=== PATIENT | female | born 1940 | race Caucasian/White ===

== ENCOUNTER 2020-08-04 22:26 | Emergency (ER) | payer OTHER ==
[~2020-08-04] VITALS: Ht 157.5 cm; Wt 88.5 kg
[2020-08-04 23:26] LABS: ABSOLUTE BASOPHILS 0.1 thou/uL (0.0-0.2); ABSOLUTE EOSINOPHILS 0.2 thou/uL (0.0-0.7); ABSOLUTE LYMPHOCYTES 4.4 thou/uL (0.8-5.3); ABSOLUTE MONOCYTES 0.8 thou/uL (0.0-1.2); ABSOLUTE NEUTROPHILS 4.2 thou/uL (1.6-8.1); EOSINOPHILS 1.8 %; HEMATOCRIT 37.4 % (37.0-47.0); HEMOGLOBIN 12.5 gm/dL (12.0-15.0); LYMPHOCYTES 45.9 %; MCH 30.2 pg (26.0-34.0); MCHC 33.5 g/dL (28.0-37.0); MPV 5.9 fl. (7.2-11.1); NUCLEATED RBCS 0 /100WBC; PLATELET COUNT* 286 thou/uL (150-400); POLYS 43.3 %; RBC 4.16 mil/uL (4.20-5.00); RDW-CV 13.8 % (10.5-14.5); WBC 9.6 thou/uL (4.0-11.0)
[2020-08-04 23:31] LABS: CALCIUM 8.3 mg/dL (8.5-10.1); CREATININE 1.3 mg/dL (0.6-1.3); POTASSIUM 3.2 mmol/L (3.5-5.1)
[2020-08-04 23:35] LABS: ALBUMIN 3.3 g/dL (3.4-5.0); TOTAL BILIRUBIN 0.4 mg/dL (<0.1-1.0)
[2020-08-04 23:37] LABS: PROTIME 10.5 Seconds (9.20-11.50)
[2020-08-05 01:27] VITALS: BP 152/77
--- NOTE | 2020-08-05 10:51 | EKG ---
[place] [address] ELECTROCARDIOGRAM REPORT Name: SAMMI COTTON Room: [facility]#: [id number] Admission: 08/04/20 Attend Phys: Discharge: 08/05/20 Date of : 44 Date of Service: 08/04/202242 Report #: [id number] THIS REPORT FOR: //name// 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
== END 2020-08-05 01:28 | disposition home or self-care (01) ==
LOC: M.ERS 22:26
PROVIDERS: Personal Emergency Response Attendant
DX: R07.89 Other chest pain (principal); M79.2 Neuralgia and neuritis, unspecified; I10 Essential (primary) hypertension; K21.9 Gastro-esophageal reflux disease without esophagitis; Z88.5 Allergy status to narcotic agent; Z88.0 Allergy status to penicillin; Z90.710 Acquired absence of both cervix and uterus

== ENCOUNTER 2020-08-28 11:27 | Observation (INO) | payer OTHER ==
[~2020-08-28] VITALS: Ht 157.5 cm; Wt 86.0 kg
[2020-08-28 11:33] VITALS: BP 160/66
[2020-08-28] MEDS ORDERED: LEVO-T25 MCG PO (11:41)
[2020-08-28] MEDS ORDERED: CARVEDILOL12.5 MG PO (11:41)
[2020-08-28] MEDS ORDERED: ISOSORBIDE DINI20 M2 PO (11:42)
[2020-08-28] MEDS ORDERED: PROTONIX40 M2 PO (11:43)
[2020-08-28] MEDS ORDERED: HYDROCHLOROTHIA25 M2 PO (11:43)
[2020-08-28] MEDS ORDERED: COZAAR 25 MG TA25 M1 PO (11:43)
[2020-08-28] MEDS ORDERED: ASA81BEC PO (11:44)
[2020-08-28] MEDS ORDERED: AMITRIPTYLINE H50 M2 PO (11:44)
[2020-08-28] MEDS ORDERED: METAMUCIL FREE822 GM PO (11:44)
[2020-08-28] MEDS ORDERED: FISH OIL 1,0001 EAC9 PO (11:45)
[2020-08-28] MEDS ORDERED: VIACTIV 650 MG1 EACH PO (11:45)
[2020-08-28] MEDS ORDERED: LIPITOR20 MG PO (11:46)
[2020-08-28] MEDS ORDERED: [UNRECOGNIZED DRUG - OTHER] (11:46)
[2020-08-28 12:16] LABS: ABSOLUTE BASOPHILS 0.1 thou/uL (0.0-0.2); ABSOLUTE EOSINOPHILS 0.1 thou/uL (0.0-0.7); ABSOLUTE LYMPHOCYTES 3.4 thou/uL (0.8-5.3); ABSOLUTE MONOCYTES 0.6 thou/uL (0.0-1.2); ABSOLUTE NEUTROPHILS 5.2 thou/uL (1.6-8.1); EOSINOPHILS 0.8 %; HEMATOCRIT 38.5 % (37.0-47.0); HEMOGLOBIN 12.7 gm/dL (12.0-15.0); MCH 29.5 pg (26.0-34.0); MCV 89.5 fL (80.0-100.0); MONOCYTES 6.3 %; MPV 6.1 fl. (7.2-11.1); NUCLEATED RBCS 0 /100WBC; PLATELET COUNT* 320 thou/uL (150-400); POLYS 55.9 %; RDW-CV 13.5 % (10.5-14.5); WBC 9.3 thou/uL (4.0-11.0)
[2020-08-28 12:27] LABS: CALCIUM 8.6 mg/dL (8.5-10.1); CREATININE 1.1 mg/dL (0.6-1.3); POTASSIUM 3.4 mmol/L (3.5-5.1)
[2020-08-28 12:37] LABS: ALBUMIN 3.4 g/dL (3.4-5.0); MAGNESIUM 1.8 mg/dL (1.8-2.4); TOTAL BILIRUBIN 0.6 mg/dL (<0.1-1.0); TOTAL PROTEIN 7.2 g/dL (6.4-8.2)
[2020-08-28 17:20] VITALS: BP 115/49
[2020-08-28 17:30] VITALS: BP 145/69
--- NOTE | 2020-08-28 18:10 | EKG ---
[place] [address] ELECTROCARDIOGRAM REPORT Name: SAMMI COTTON Room: [address]R.#: [id number] Admission: 08/28/20 Attend Phys: Justin Hale, Discharge: Date of : 44 Date of Service: 08/28/20 1132 Report #: [id number] THIS REPORT FOR: //name// [facility] ED Test Date: 2020-08-28 Test Time: 11:32:49 Pat Name: SAMMI COTTON Department: Room: [facility] Gender: F Bakery Manager: : 1940 Requested By: Misael Otto Order Number: [id number] MD: Iglesia Choudhury Measurements Intervals [place] Rate: 70 P: -16 OR: 186 QRS: 32 QRSD: 113 T: 54 QT: 413 QTc: 446 Interpretive Statements Sinus rhythm Borderline intraventricular conduction delay Compared to ECG 08/04/2020 22:43:24 No significant changes Electronically Signed On 08-28-2020 18:10:27 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
[2020-08-28 19:20] VITALS: BP 141/52
[2020-08-29 05:32] LABS: ABSOLUTE BASOPHILS 0.1 thou/uL (0.0-0.2); ABSOLUTE EOSINOPHILS 0.1 thou/uL (0.0-0.7); ABSOLUTE MONOCYTES 0.8 thou/uL (0.0-1.2); ABSOLUTE NEUTROPHILS 4.8 thou/uL (1.6-8.1); BASOPHILS 0.8 %; EOSINOPHILS 1.3 %; HEMATOCRIT 36.8 % (37.0-47.0); HEMOGLOBIN 12.4 gm/dL (12.0-15.0); MCH 29.8 pg (26.0-34.0); MCHC 33.7 g/dL (28.0-37.0); MCV 88.3 fL (80.0-100.0); MONOCYTES 7.7 %; MPV 6.5 fl. (7.2-11.1); NUCLEATED RBCS 0 /100WBC; PLATELET COUNT* 317 thou/uL (150-400); POLYS 49.2 %; RBC 4.17 mil/uL (4.20-5.00); RDW-CV 13.7 % (10.5-14.5); WBC 9.9 thou/uL (4.0-11.0)
[2020-08-29 05:58] LABS: CALCIUM 8.7 mg/dL (8.5-10.1); CREATININE 1.2 mg/dL (0.6-1.3); POTASSIUM 3.4 mmol/L (3.5-5.1)
[2020-08-29 08:00] VITALS: BP 157/98
[2020-08-29 12:26] VITALS: BP 157/98
[2020-08-29 12:36] VITALS: BP 121/63
[2020-08-29] MEDS ORDERED: CARDIZEM30 MG PO (13:52)
== END 2020-08-29 14:55 | disposition home or self-care (01) ==
LOC: M.ERS 11:27 → M.TBA-ER 13:31 → M.2W 17:29
PROVIDERS: Emergency Medicine Emergency Medical Services; ADMIT Internal Medicine; ATTEND Internal Medicine
DX: R07.89 Other chest pain (principal); F41.1 Generalized anxiety disorder; K21.9 Gastro-esophageal reflux disease without esophagitis; K22.4 Dyskinesia of esophagus; M19.90 Unspecified osteoarthritis, unspecified site; I10 Essential (primary) hypertension; M54.9 Dorsalgia, unspecified; G89.29 Other chronic pain; Z87.891 Personal history of nicotine dependence; Z79.899 Other long term (current) drug therapy; Z20.828 Contact with and (suspected) exposure to other viral communicable diseases